=== PATIENT | female | born 1995 | race Caucasian/White ===

== ENCOUNTER 2017-04-16 02:56 | Emergency (ER) | payer OTHER ==
[~2017-04-16] VITALS: Ht 170.2 cm; Wt 104.3 kg
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
[2017-04-16] MEDS ORDERED: DIPHTH,PERTUSS(ACELL),TET TOX 0.5 ML DISP.SYRIN. VAX IM ONE (03:15)
[2017-04-16] MEDS ORDERED: IV RINGERS SOLUTION,LACTATED 1,000 ML IV SCH (03:30)
[2017-04-16] MEDS ORDERED: [UNRECOGNIZED DRUG - OTHER] PO (03:37)
[2017-04-16] MEDS ORDERED: trisprintec PO (03:37)
[2017-04-16] MEDS ORDERED: CITA40TA5 PO (03:37)
[2017-04-16] MEDS ORDERED: MVI, ADULT NO.4 WITH VIT K 10 ML, FOLIC ACID SYRINGE for ER 1 MG, THIAMINE 100 MG in IV... IV ONE ×4 (03:45)
[2017-04-16] MEDS ORDERED: MVI, ADULT NO.4 WITH VIT K 10 ML VIAL IV ONE (03:48)
[2017-04-16] MEDS ORDERED: FOLIC ACID 5 MG/ML SYRINGE for ER IV ONE (03:48)
[2017-04-16] MEDS ORDERED: THIAMINE 200 MG/2 ML VIAL. IV ONE (03:48)
[2017-04-16 05:03] LABS: BASO # 0.1 x10^3/uL (0.0-0.2); BASO % 1 % (0-3); EOS # 0.1 x10^3/uL (0.0-0.7); EOS % 1 % (0-3); HEMOGLOBIN 13.4 g/dL (12.0-15.5); LYMPH # 3.3 x10^3/uL (1.0-4.8); LYMPH % 33 % (24-48); MEAN CORPUSCULAR HEMOGLOBIN 29 pg (25-35); MEAN CORPUSCULAR HGB CONC 35 g/dL (31-37); MEAN CORPUSCULAR VOLUME 83 fL (79-100); MONO # 0.9 x10^3/uL (0.0-1.1); MONO % 8 % (0-9); NEUT # 5.8 x10^3uL (1.8-7.7); NEUT % 57 % (31-73); PLATELET COUNT 385 x10^3/uL (140-400); RED BLOOD COUNT 4.59 x10^6/uL (3.50-5.40); WHITE BLOOD COUNT 10.2 x10^3/uL (4.0-11.0)
[2017-04-16 05:04] LABS: BILIRUBIN,URINE NEG (NEG); CLARITY,URINE CLEAR; COLOR,URINE YELLOW; GLUCOSE,URINE NEG (NEG)
[2017-04-16 05:05] LABS: BACTERIA,URINE FEW /HPF (0-FEW); NITRITE,URINE NEG (NEG); RBC,URINE 0 /HPF (0-2); SQUAMOUS EPITHELIAL CELL,UR FEW /LPF; UROBILINOGEN,URINE 0.2 mg/dL (0.2 mg/dL); WBC,URINE 0 /HPF (0-4)
[2017-04-16 05:11] LABS: AMPHETAMINE/METHAMPHETAMINE NEG (NEG); BARBITURATES NEG (NEG); BENZODIAZEPINES NEG (NEG); CANNABINOIDS NEG (NEG); COCAINE NEG (NEG); METHADONE NEG (NEG); OPIATES NEG (NEG); PHENCYCLIDINE NEG (NEG)
[2017-04-16 05:20] LABS: ALBUMIN 3.7 g/dL (3.4-5.0); CALCIUM 8.4 mg/dL (8.5-10.1); CREATININE 0.8 mg/dL (0.6-1.0); DIRECT BILIRUBIN 0.1 mg/dL (0.0-0.2); GFR 90.5; TOTAL BILIRUBIN 0.2 mg/dL (0.2-1.0); TOTAL PROTEIN 7.6 g/dL (6.4-8.2)
[2017-04-16 05:53] LABS: ACETAMIN < 2 mcg/mL (10-30); ETHANOL 148 mg/dL (0-10); SALIC 1.4 mg/dL (2.8-20.0)
[2017-04-16 07:32] VITALS: BP 123/81
--- NOTE | 2017-04-16 08:17 | EKG ---
[address] [address] Test Date: 2017-04-16 Test Time: 03:39:34 Pat Name: OLI SALINAS Department: Room: Gender: F Readiness Paraprofessional: JACKY : 1995 Requested By: AFTAB VANG Order Number: [id number] Reading MD: Mitch Fish Measurements Intervals [place] Rate: 77 P: -30 KS: 134 QRS: 49 QRSD: 86 T: 28 QT: 386 QTc: 439 Interpretive Statements SINUS RHYTHM Electronically Signed On 04-18-2017 9:55:32 CDT by Mitch Fish
== END 2017-04-16 07:42 | disposition home or self-care (01) ==
LOC: ER 02:56
DX: R45.851 Suicidal ideations (principal); S41.112A Laceration without foreign body of left upper arm, initial encounter; S81.811A Laceration without foreign body, right lower leg, initial encounter; F43.10 Post-traumatic stress disorder, unspecified; F32.9 Major depressive disorder, single episode, unspecified; K58.9 Irritable bowel syndrome, unspecified; G89.29 Other chronic pain; G47.00 Insomnia, unspecified; X78.9XXA Intentional self-harm by unspecified sharp object, initial encounter; Y93.89 Activity, other specified; Y92.89 Other specified places as the place of occurrence of the external cause; Y99.8 Other external cause status
CPT/HCPCS: 36415; 80048; 80076; 80307; 81001; 81025; 83690; 83735; 85025; 85610; 85730; 93005; 96365; 96366; 99285; G0480; J7120; G0479

== ENCOUNTER 2018-03-15 12:48 | Emergency (ER) | payer OTHER ==
[~2018-03-15] VITALS: Ht 170.2 cm; Wt 113.9 kg
[~2018-03-15 12:48] MED LIST: CITA40TA5 PO; [UNRECOGNIZED DRUG - OTHER] PO; trisprintec PO
--- NOTE | 2018-03-15 13:46 | RAD ---
Right shoulder, 3 views, 03/15/2018: HISTORY: Fall, shoulder pain No fracture or dislocation is identified. The periarticular soft tissues are unremarkable. IMPRESSION: No significant right shoulder abnormality is detected. Electronically signed by: Beni Nguyen MD (03/15/2018 1:42 PM) [facility]
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
[2018-03-15 14:37] VITALS: BP 141/89
== END 2018-03-15 14:37 | disposition home or self-care (01) ==
LOC: ER 12:48
DX: S46.911A Strain of unspecified muscle, fascia and tendon at shoulder and upper arm level, right arm, initial encounter (principal); F41.9 Anxiety disorder, unspecified; M19.90 Unspecified osteoarthritis, unspecified site; F32.9 Major depressive disorder, single episode, unspecified; K58.9 Irritable bowel syndrome, unspecified; Y08.89XA Assault by other specified means, initial encounter; Y93.89 Activity, other specified; Y92.89 Other specified places as the place of occurrence of the external cause; Y99.8 Other external cause status
CPT/HCPCS: 73030; 99284

== ENCOUNTER → 2019-02-12 | Outpatient (CLI) | payer OTHER ==
--- NOTE | 2019-02-12 15:11 | RAD ---
Examination: BREAST RIGHT History: Right breast palpable abnormality at the 10:00 region Comparison/Correlation: None Findings: Ultrasound imaging of the right breast was performed. In the retroareolar and upper outer aspect, there is no mass or cyst identified at the reported site of palpable abnormality. Impression: No suspicious process involving the right breast. Clinical management is recommended. Electronically signed by: Demar Birmingham MD (02/12/2019 3:08 PM) [facility]
== END | disposition home or self-care (01) ==
LOC: US 12:40
PROVIDERS: ATTEND Physician Assistant
DX: N63.11 Unspecified lump in the right breast, upper outer quadrant (principal)
CPT/HCPCS: 76641